=== PATIENT | female | born 1990 | race African-American/Black ===

== ENCOUNTER 2024-02-01 10:21 | Inpatient (IN) | payer OTHER, MEDICAID ==
[2024-02-01] VITALS (22 sets, daily range): BP systolic 90–150; BP diastolic 51–111; PULSE 72–98; TEMP 97.7–98.1
[~2024-02-01] VITALS: Ht 170.2 cm; Wt 89.5 kg
[2024-02-01] MEDS ORDERED: LR 1,000 ML IV PRN (10:45)
--- NOTE | 2024-02-01 11:00 | NUR ---
1035 PT ARRIVES ON UNIT COMPLAINING OF A GUSH OF FLUID AT 0900 THIS MORNING. PT REPORTS IT TO BE CLEAR/YELLOW FLUID WITH NO ODOR. PT STATES SHE HASNT HAD ANY LEAKING SINCE. PT DENIES VB, DFM, STRONG/REGULAR CTX OR ANY OTHER COMPLAINTS OTHER THAN HAVING OCCASIONAL BACK PAIN. RN DISCUSSES POC WITH PT AND SPOUSE AND PT VERBALIZES UNDERSTANDING. PT STATES SHE WAS 1 CM IN OFFICE ONE WEEK AGO.
[2024-02-01] MEDS ORDERED: PRENATAL TABLET (11:18)
--- NOTE | 2024-02-01 11:23 | NUR ---
1110 PT PROVIDED APPLE JUICE AND CRACKERS
[2024-02-01] MEDS ORDERED: LR 1,000 ML IV SCH (11:45)
[2024-02-01] MEDS ORDERED: LR & Oxytocin 500 ML IV SCH (11:45)
[2024-02-01 12:23] LABS: HEMATOCRIT 41.5 % (37.0-47.0); HEMOGLOBIN 13.5 g/dl (12.5-16.0); MEAN CELL VOLUME 85 fl (80.0-100.0); MEAN CORPUSCULAR HEMOGLOBIN 28 pg (27-31); MEAN CORPUSCULAR HGB CONC 33 g/dl (33.0-37.0); MEAN PLATELET VOLUME 10.1 fl (7.4-10.4); PLATELET COUNT 221 K/mm3 (130-400); REDCELL DISTRIBUTION WIDTH-CV 15.8 % (11.5-14.5)
--- NOTE | 2024-02-01 12:42 | NUR ---
1130 JEAN ALLAN UPDATED ON PT ARRIVAL, HX, COMPLAINTS, ROM + POSITIVE, GBS STATUS, FHTS, CTX PATTERN, SVE, PT PAIN RATING. ORDERS TO ADMIT PT TO LABOR AND START PITOCIN IF NO CERVICAL CHANGE MADE. PT MAY HAVE EPIDURAL WHEN DESIRES. SHELLY DREW
[2024-02-01 12:55] LABS: BAND 1 % (0-10); EOSINOPHIL 1 % (0-4); LYMPHOCYTE 19 % (20.0-51.0); NEUTROPHILS 79 % (42.0-75.2)
--- NOTE | 2024-02-01 12:55 | NUR ---
ADMISSION PAPERWORK GONE OVER WITH PT AND CONSENTS SIGNED. PT REQUESTING TO WAIT TO START PITOCIN UNTIL 1300.
[2024-02-01 12:56] LABS: ANISOCYTOSIS 1+; HYPOCHROMIA 1+; PLATELET ESTIMATE NORMAL (NORMAL)
--- NOTE | 2024-02-01 15:13 | NUR ---
1450 PT REPOSITIONED, IVFB STARTED.
[2024-02-01] MEDS ORDERED: fentaNYL 50 MCG/ML 2 ML VIAL IV ONE (18:00)
--- NOTE | 2024-02-01 18:00 | NUR ---
5924 JEAN ALLAN UPDATED ON PT REQUEST FOR IV PAIN MEDICATION AT THIS TIME. UPDATED ON FHTS, CTX PATTERN AND MOST RECENT SVE. ORDERS TO 50 MCG FENTANYL AT THIS TIME. SHELLY MILLERVO
--- NOTE | 2024-02-01 19:30 | NUR ---
Pt off the monitor to use the bathroom, back to sitting on the side of the bed for epidural placement. Anesthesia at the bedside for epidural.
[2024-02-01] MEDS ORDERED: ROPivacaine PF 0.2% 200 ML IV ONE (19:45)
--- NOTE | 2024-02-01 19:45 | NUR ---
RN at bedside for support during epidural placement. Difficulty tracing heart tones due to maternal position during epidural. Spouse providing support also. SPO2 monitor on pt monitoring heart rate.
[2024-02-01] MEDS ORDERED: Naloxone 0.4 MG/ML VIAL IV PRN (20:00)
[2024-02-01] MEDS ORDERED: diphenhydrAMINE 50 MG/ML 1 ML VIAL IV PRN (20:00)
[2024-02-01] MEDS ORDERED: ePHEDrine 50 MG/10 ML VIAL IV PRN (20:00)
[2024-02-01] MEDS ORDERED: diphenhydrAMINE 25 MG CAP PO PRN (20:00)
[2024-02-01] MEDS ORDERED: Ondansetron 4 MG/2 ML VIAL IV PRN (20:00)
--- NOTE | 2024-02-01 20:00 | NUR ---
1947: Pt resting in bed, left tilt after epidural. Moderate variability observed and RN at bedside monitoring pt and fetus. 1949: Late decel observed, pt repositioned all the way over to her left side and good recovery noted, pt supported in this position through the next ctx. RN observes another late decel after the next ctx and RN begins to reposition pt again when Dr Cheatham enters the room. 1954: Dr Cheatham in room to visit with pt and spouse about status and to obtain an SVE. Pt understanding and verbalizes consent. 1956: SVE /-2 and RN receives verbal order to turn off pitocin at this time. Will monitor status and ctx pattern.
--- NOTE | 2024-02-01 20:15 | NUR ---
RN continues to be at the bedside. Recurrent late decels observed, pt repositioned to her right side to attempt to correct. RN remains at bedside monitoring maternal and status.
--- NOTE | 2024-02-01 21:45 | NUR ---
DR. Cheatham to the bedside to assess maternal and status. Late decels still resolving with the pitocin off Dr Cheatham informs the pt and spouse. SVE obtained and pt is /-1, he attempts to rupture a forebag and gets a small amount of clear fluid. Dr Cheatham informs pt that she will continue to labor on her own and we will continue to monitor her and the fetus.
--- NOTE | 2024-02-01 22:00 | NUR ---
One late decel during this tracing, pt repositioned to her right side, peanut ball placed between her knees. heart tones tolerating this position at this time.
--- NOTE | 2024-02-01 22:45 | NUR ---
Variable and late decels observed during this tracing intermittently. Dr Cheatham aware and pt repositioned to her left side and a peanut ball is placed in between her knees to aid in dilation and descent.
--- NOTE | 2024-02-01 23:00 | NUR ---
Continue to observe intermittent late decels during this tracing. Minimal variability observed as well and Dr Cheatham aware. Pt continues to labor on her own.
--- NOTE | 2024-02-01 23:15 | NUR ---
Continue to have intermittent late decels during this tracing, pt on her left side with a peanut ball between her knees.
--- NOTE | 2024-02-01 23:45 | NUR ---
Variable decels observed during this tracing due to maternal positioning. Pt placed on her back, slightly elevated for SVE. Good recovery when pt is repositioned.
[2024-02-02] VITALS (22 sets, daily range): BP systolic 101–136; BP diastolic 55–87; PULSE 71–111; TEMP 97.9–98.8
--- NOTE | 2024-02-02 00:30 | NUR ---
Pt currently in [facility] with her legs frogged to aid in descent. RN observes recurrent subtle late decels occuring during this tracing. RN preparing to reposition pt and obtain an SVE.
--- NOTE | 2024-02-02 01:00 | NUR ---
Pt in semi-fowlers at this time after SVE exam, late decels observed during this time due to maternal positioning. RN begins teaching pt about pushing and how she should push with opportunity for questions given.
--- NOTE | 2024-02-02 01:15 | NUR ---
0104: RN begins pushing with pt at this time. Pt fair at pushing. Late decel into the 140's observed and audibly heard through the monitor. Pt repositioned onto her left side to aid in recovery. 0107: Pt repositioned back to her back and in semi-fowlers's to attempt to continue pushing. 0109: Another late decel into the 140's after pt done pushing with the ctx, pt instructed to rest with the next ctx to allow for recovery. RN also talked to the pt about if fetus continues to have late decels with pushing, I will notify Dr Cheatham and have him on the unit to be able to assess maternal and status.
--- NOTE | 2024-02-02 01:30 | NUR ---
0115: RN pushes with pt for another ctx, continue to have a late decel after pt is finished pushing. I inform the pt and her spouse that because fetus is continuing to have late decels, I am going to notify Dr Cheatham to come be on the unit. Pt and spouse verbalize understanding. 0117: Dr Cheatham called. 0130: Dr Cheatham in room to assess maternal and status.
--- NOTE | 2024-02-02 01:45 | NUR ---
0130: Dr Cheatham at the bedside discussing with pt and spouse options for delivery. Informs pt that she is pushing very well and discusses with pt the option of using a vacuum to assist in delivery. That with the late decels the fetus is having, this is a good option to be able to have a vaginal delivery. Does also discuss with the pt and spouse, that even with her pushing as well as she is, if the head does not descend, then that mean that the fetus may not fit through her pelvis; but at this time, the vacuum is a good option. 0135: Pt and spouse decide to attempt delivery with a vaccum. Pt prepped, Dr Cheatham prepares for delivery, Nursery is notified of possible vacuum delivery. 0140: Pt is ready to begin pushing again, Dr Cheatham prepared for delivery. vacuum placed at this time, pressure applied as ctx builds. Pt pushing well with the ctx. 0142: Vacuum pop-off at this time. Vacuum put back in place. 0143: Vacuum placed at this time, pressure applied as ctx builds and pt pushes with the ctx. As pt prepares to push one more time with the ctx, pop-off occurs. Pt allowed to rest a few minutes before another attempt is made.
--- NOTE | 2024-02-02 01:59 | NUR ---
Live female fetus delivered via vacuum assisted , spontaneous crying heard, infant cleaned and bulb suctioned by Dr Cheatham and place on mother's abdomen. Cord clamped by Dr Cheatham, cut by father and infant placed skin to skin with mother. Care of taken over by Nursery RN. Dr Cheatham performs perineal repair, mother is cleaned up and repositioned.
--- NOTE | 2024-02-02 02:00 | NUR ---
0148: Vacuum reapplied at this time after allowing pt a few minutes to rest. 0149: Vacuum pressure applied as the ctx builds, pt instructed to begin pushing. Pt pushing well. 0151: As pt pushes a 4th time with the ctx, another vacuum pop-off occurs. Dr Cheatham informs pt that with that ctx and her pushing effort, there was good descent. 0152: Vacuum reapplied, pressure applied and pt begins pushing. Pt pushing well and descent observed. 0153: Vacuum pop-off occurs. Dr Cheatham informs pt that she is pushing really well and there was more descent and he is willing to place the vacuum one more time to try and get the fetus delivered, due to the pt pushing so well and the fetus being so close to delivery. 0155: Vacuum reapplied and pressure applied as ctx builds. Pt instructed to begin pushing. Pt with good pushing effort. 0158: Delivery of head observed at this time. Vacuum removed by Dr Cheatham and pt instructed to continue pushing. 0159: Pt continues pushing and fetus delivered at this time.
[2024-02-02] MEDS ORDERED: Tranexamic Acid 1,000 MG/10 ML VIAL IV ONE (02:02)
[2024-02-02] MEDS ORDERED: Acetaminophen 500 MG TAB PO SCH (04:45)
[2024-02-02] MEDS ORDERED: Mag/Al Hydrox/Simeth Susp 30 ML CUP PO PRN (04:45)
[2024-02-02] MEDS ORDERED: Ibuprofen 600 MG TAB PO SCH (04:45)
[2024-02-02] MEDS ORDERED: Witch Hazel 50% Pads Bulk TUB TP PRN (04:45)
[2024-02-02] MEDS ORDERED: oxyCODONE 5 MG TAB PO PRN (04:45)
[2024-02-02] MEDS ORDERED: Naloxone 0.4 MG/ML VIAL IV PRN (04:45)
[2024-02-02] MEDS ORDERED: Measles/Mumps/Rubella Virus Vaccine Live w Diluent 0.5 ML VIAL SQ SCH (04:45)
[2024-02-02] MEDS ORDERED: Sennosides/Docusate 8.6-50 MG TAB PO SCH (08:00)
[2024-02-02] MEDS ORDERED: Prenatal Vitamins/Iron/FA TAB PO SCH (09:00)
--- NOTE | 2024-02-02 10:14 | NUR ---
Initial visit; Patient thanked [employer] for looking in on her and offering Blessings for the of their daughter. Patient very quiet but reacts to [employer] offering Blessings and admiringf the jessie name she and her gave her daughter.
[2024-02-02] MEDS ORDERED: traZODone 50 MG TAB PO PRN (21:00)
[2024-02-02] MEDS ORDERED: Magnes Hydrox (MOM) 80 MG/ML 30 ML CUP PO SCH (21:00)
[2024-02-03 07:52] VITALS: BP 110/70; PULSE 72; TEMP 97.5
[2024-02-03] MEDS ORDERED: MOTRIN 600600 MG/TAB PO (08:16)
== END 2024-02-03 14:23 | disposition home or self-care (01) | DRG 768 ==
LOC: LDRO 10:21 → OB 11:59 → LDR 11:59 → OB 02-02 04:30
PROVIDERS: Obstetrics & Gynecology; ADMIT Student in an Organized Health Care Education/Training Program
PROC: 10D07Z6 Extraction of Products of Conception, Vacuum, Via Natural or Artificial Opening (ICD-10-PCS; principal; 2024-02-02)
PROC: 0DQR0ZZ Repair Anal Sphincter, Open Approach (ICD-10-PCS; 2024-02-02)
PROC: 3E033VJ Introduction of Other Hormone into Peripheral Vein, Percutaneous Approach (ICD-10-PCS; 2024-02-02)
DX: O36.63X0 Maternal care for excessive fetal growth, third trimester, not applicable or unspecified (principal); Z37.0 Single live birth; Z3A.39 39 weeks gestation of pregnancy; O77.0 Labor and delivery complicated by meconium in amniotic fluid; O34.13 Maternal care for benign tumor of corpus uteri, third trimester; L30.9 Dermatitis, unspecified; O76 Abnormality in fetal heart rate and rhythm complicating labor and delivery; D25.2 Subserosal leiomyoma of uterus; O99.214 Obesity complicating childbirth; O99.72 Diseases of the skin and subcutaneous tissue complicating childbirth; Z86.16 Personal history of COVID-19
CPT/HCPCS: J2590; J2795; J7120